=== PATIENT | female | born 1985 | race Caucasian/White ===

== ENCOUNTER 2020-01-11 13:05 | Emergency (ER) | payer OTHER, MEDICAID ==
[2020-01-11 13:20] VITALS: BP 120/77
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
== END 2020-01-11 15:35 | disposition home or self-care (01) ==
LOC: ER 13:05
DX: M54.2 Cervicalgia (principal); V49.40XA Driver injured in collision with unspecified motor vehicles in traffic accident, initial encounter; M48.02 Spinal stenosis, cervical region
CPT/HCPCS: 72050; 99283